=== PATIENT | male | born 1960 | race African-American/Black ===

== ENCOUNTER 2018-09-07 22:17 | Emergency (ER) | payer OTHER, MEDICAID ==
[~2018-09-07] VITALS: Ht 182.9 cm; Wt 122.5 kg
[2018-09-08 00:07] VITALS: BP 110/70
== END 2018-09-08 00:07 | disposition home or self-care (01) ==
LOC: ED 22:17
DX: S63.501A Unspecified sprain of right wrist, initial encounter (principal); S83.91XA Sprain of unspecified site of right knee, initial encounter; I10 Essential (primary) hypertension; E11.9 Type 2 diabetes mellitus without complications; Z88.2 Allergy status to sulfonamides; W22.8XXA Striking against or struck by other objects, initial encounter; Y93.89 Activity, other specified; Y92.89 Other specified places as the place of occurrence of the external cause; Y99.8 Other external cause status
CPT/HCPCS: Q0092

== ENCOUNTER 2018-09-19 16:17 | Emergency (ER) | payer OTHER, MEDICAID ==
[~2018-09-19] VITALS: Ht 182.9 cm; Wt 122.0 kg
[2018-09-19 16:23] VITALS: BP 137/69; Ht 182.9 cm; Wt 122.0 kg
== END 2018-09-19 21:30 | disposition home or self-care (01) ==
LOC: ED 16:17
DX: K08.89 Other specified disorders of teeth and supporting structures (principal); I10 Essential (primary) hypertension; E11.9 Type 2 diabetes mellitus without complications; Z88.2 Allergy status to sulfonamides

== ENCOUNTER 2019-01-31 16:44 | Emergency (ER) | payer OTHER, MEDICAID ==
[~2019-01-31] VITALS: Ht 182.9 cm; Wt 124.7 kg
[2019-01-31 17:17] VITALS: Ht 182.9 cm; Wt 124.7 kg
[2019-01-31 19:15] VITALS: BP 140/79
== END 2019-01-31 19:15 | disposition home or self-care (01) ==
LOC: ED 16:44
DX: M25.571 Pain in right ankle and joints of right foot (principal); I10 Essential (primary) hypertension; E11.9 Type 2 diabetes mellitus without complications; G89.29 Other chronic pain; Z88.2 Allergy status to sulfonamides
CPT/HCPCS: Q0092

== ENCOUNTER 2019-03-03 10:00 | Emergency (ER) | payer MEDICARE, MEDICAID ==
[~2019-03-03] VITALS: Ht 182.9 cm; Wt 127.5 kg
[2019-03-03 10:03] VITALS: BP 120/72; Ht 182.9 cm; Wt 127.5 kg
== END 2019-03-03 10:31 | disposition home or self-care (01) ==
LOC: ED 10:00
DX: E11.65 Type 2 diabetes mellitus with hyperglycemia (principal); I10 Essential (primary) hypertension; G89.29 Other chronic pain; Z88.2 Allergy status to sulfonamides
CPT/HCPCS: 82962

== ENCOUNTER 2019-04-05 14:25 | Emergency (ER) | payer MEDICARE, MEDICAID ==
[~2019-04-05] VITALS: Ht 182.9 cm; Wt 126.1 kg
[2019-04-05 14:29] VITALS: Ht 182.9 cm; Wt 126.1 kg
[2019-04-05 16:23] VITALS: BP 139/87
== END 2019-04-05 16:23 | disposition home or self-care (01) ==
LOC: ED 14:25
DX: I83.91 Asymptomatic varicose veins of right lower extremity (principal); M77.31 Calcaneal spur, right foot; I10 Essential (primary) hypertension; R05 Cough; E11.9 Type 2 diabetes mellitus without complications; Z88.2 Allergy status to sulfonamides
CPT/HCPCS: Q0092